=== PATIENT | female | born 1945 | race Caucasian/White ===

== ENCOUNTER 2019-03-08 10:30 | Inpatient (IN) | payer OTHER ==
[~2019-03-08] VITALS: Ht 172.7 cm; Wt 122.5 kg
[~2019-03-08 10:30] MED LIST: ACTICAL SOFTGEL1 CAP PO; ASPIR 8181 MG PO; CHLORTHALIDONE PO; GLUCOSAMINE-CH1 EAC7 PO; HUMALIN N SL; HUMULIN R; INTEGRA PLUS CAPSULE PO; LOSARTAN POTAS100 MG PO; METOPROLOL PO; OXYC1TAB9 PO; SIMVASTATIN40 MG PO; TRENTAL PO; XARELTO 10MG PO
[2019-03-08] MEDS ORDERED: COSENTYX (150 MG/1 M SUBCUTANEO (15:29)
[2019-03-13] MEDS ORDERED: CHLORTHALIDONE25 MG PO (09:24)
[2019-03-13] MEDS ORDERED: TOPROL XL25 M1 PO (09:24)
[2019-03-13] MEDS ORDERED: FOLIC ACID1 MG PO (09:25)
[2019-03-13] MEDS ORDERED: INTEGRA CAPSUL1 EACH PO (09:25)
[2019-03-13] MEDS ORDERED: GABAPENTIN300 M2 PO (09:26)
[2019-03-13] MEDS ORDERED: VITAMIN D32000 UNI1 (09:27)
[2019-03-13] MEDS ORDERED: PENTOXIFYLLINE400 MG PO (09:29)
[2019-03-16] MEDS ORDERED: OXYC1TAB9 PO (09:16)
[2019-03-16] MEDS ORDERED: INTEGRA PLUS C1 EACH PO (09:16)
[2019-03-16] MEDS ORDERED: XARELTO10 MG PO (09:16)
[2019-03-16] MEDS ORDERED: BACTRIM DS TAB1 EACH PO (09:16)
== END 2019-03-16 16:17 | DRG 470 ==
LOC: SURH 03-13 06:49 → O/R 03-13 06:49 → SURH 03-13 07:00 → O/R 03-13 10:30 → SURH 03-13 10:30
PROVIDERS: ADMIT Orthopaedic Surgery Sports Medicine
PROC: 0SRC0J9 Replacement of Right Knee Joint with Synthetic Substitute, Cemented, Open Approach (ICD-10-PCS; principal; 2019-03-13 07:00)
DX: M17.11 Unilateral primary osteoarthritis, right knee (principal); I10 Essential (primary) hypertension; E11.40 Type 2 diabetes mellitus with diabetic neuropathy, unspecified; Z79.4 Long term (current) use of insulin